=== PATIENT | male | born 1945 | race African-American/Black ===

== ENCOUNTER 2018-08-29 12:58 | Inpatient (IN) | payer OTHER ==
[~2018-08-29] VITALS: Ht 182.9 cm; Wt 86.2 kg
[~2018-08-29 12:58] MED LIST: AMLO10TA4 PO; CALC-837 MT; DEXA4TAB MT; GABA-529 PO; HYDR-4001 PO; PVCXPC MT
[2018-08-29] MEDS ORDERED: SODIUM CHLORIDE 0.9% 1,000 ML IV ONE (14:06)
[2018-08-29] MEDS ORDERED: INSULIN REGULAR (HUMULIN R) UD 100 UNITS/ML SYR SUBCUT ONE (14:15)
[2018-08-29 14:48] LABS: HEMATOCRIT. 28.5 % (42.0-52.0); HEMOGLOBIN. 9.4 g/dL (14.0-18.0); MEAN CORPUSCULAR HEMOGLOBIN 31.6 pg (28.0-32.0); MEAN CORPUSCULAR VOLUME 95.9 fL (80.0-94.0); PLATELET 65 x1000/uL (130-400); RED BLOOD CELL COUNT 2.98 mill/uL (4.7-6.1); RED CELL DISTRIBUTION WIDTH 21.9 % (11.6-14.6)
[2018-08-29 14:59] LABS: BG CARBOXYHEMOGLOBIN 0.6 % (0.5-1.5); BG DEOXYHEMOGLOBIN 3.7 % (0.0-5.0); BG FRACTION INSPIRED OXYGEN 36; BG HCO3 ACT 23.7 mmol/L (22.0-26.0); BG METHEMOGLOBIN 0.3 % (0.0-1.5); BG OXYGEN SATURATION 96.3 % (92.0-98.5); BG OXYHEMOGLOBIN 95.4 % (94.0-97.0); BG PCO2 34.7 mmHg (35.0-45.0); BG PH 7.452 (7.350-7.450); BG PO2 82.4 mmHg (75.0-100.0); BG SAMPLE SITE LEFT BRACHIAL; BG TOTAL HEMOGLOBIN 9.9 g/dL (12.0-18.0); BG VENT MODE NASAL CANNULA
[2018-08-29 15:06] LABS: CHLORIDE 105 mEq/L (98-107)
[2018-08-29 15:10] LABS: D-DIMER 4.82 mg/L FEU (<0.50); INR 1.3; PARTIAL THROMBOPLASTIN TIME 30.5 sec (23.4-31.0)
[2018-08-29 15:24] LABS: BETA HYDROXYBUTYRATE < 0.1 mMol/L (0.0-0.3)
[2018-08-29 15:24] LABS: CLARITY URINE CLEAR (CLEAR); COLOR URINE YELLOW (YELLOW); KETONES URINE NEGATIVE (NEGATIVE); LEUKOCYTE ESTERASE URINE NEGATIVE (NEGATIVE); NITRITE URINE NEGATIVE (NEGATIVE); OCCULT BLOOD URINE TRACE (NEGATIVE); PH URINE 5.5 (4.5-8.0); PROTEIN URINE 1+ (NEGATIVE); SPECIFIC GRAVITY URINE 1.018 (1.005-1.030); UROBILINOGEN URINE 0.2 E.U./dL (0.2-1.0)
[2018-08-29 16:27] LABS: PLATELET ESTIMATE DECREASED
[2018-08-29] MEDS ORDERED: LEVOFLOXACIN 750MG PREMIX 150 ML IV ONE (17:30)
[2018-08-29] MEDS ORDERED: DIPHENHYDRAMINE 50MG/ML VIAL IV PRN (19:15)
[2018-08-29] MEDS ORDERED: MORPHINE SULFATE 4 MG/ML CPJ (NOT FOR IM USE) IV PRN (19:15)
[2018-08-29] MEDS ORDERED: CLONIDINE 0.1MG TABLET PO PRN (19:15)
[2018-08-29] MEDS ORDERED: NA PHOS,M-B/NA PHOS,DI-BA ENEMA 118ML PR PRN (19:15)
[2018-08-29] MEDS ORDERED: GUAIFENESIN 200MG/10ML SUGAR FREE UDC PO PRN (19:15)
[2018-08-29] MEDS ORDERED: ZOLPIDEM TARTRATE 5MG TABLET PO PRN (19:15)
[2018-08-29] MEDS ORDERED: NITROGLYCERIN 0.4MG TABLET SL SL PRN (19:15)
[2018-08-29] MEDS ORDERED: ACETAMINOPHEN 325MG TABLET PO PRN (19:15)
[2018-08-29] MEDS ORDERED: IPRATROPIUM/ALBUTEROL 0.5-3(2.5)MG/3ML NEB INH PRN (19:15)
[2018-08-29] MEDS ORDERED: ONDANSETRON HCL 4MG/2ML INJ IV PRN (19:15)
[2018-08-29] MEDS ORDERED: LORAZEPAM 0.5MG TABLET PO PRN (19:15)
[2018-08-29] MEDS ORDERED: TRAMADOL 50MG TABLET PO PRN (19:15)
[2018-08-29] MEDS ORDERED: DOCUSATE SODIUM 100MG CAPSULE PO PRN (19:15)
[2018-08-29] MEDS ORDERED: MAGNESIUM/ALUMINUM HYDROXIDE/SIMETHICONE 30ML UDC PO PRN (19:15)
[2018-08-29] MEDS: FAMOTIDINE 20MG TABLET PO SCH (21:00)
[2018-08-29] MEDS: ASCORBIC ACID 500 MG TABLET PO SCH (21:00)
[2018-08-29 22:35] VITALS: BP 90/58
[2018-08-29] MEDS ORDERED: FILGRASTIM-TBO 300 MCG/0.5 ML SYRINGE SQ SCH (23:30)
[2018-08-30] VITALS: BP 97/65
[2018-08-30] MEDS: SODIUM CHLORIDE 0.9% 1,000 ML IV SCH ×3 (00:35→14:08)
[2018-08-30 04:00] VITALS: BP 97/67
[2018-08-30 08:00] VITALS: BP 94/63
[2018-08-30] MEDS: FAMOTIDINE 20MG TABLET PO SCH (08:09)
[2018-08-30] MEDS: ASCORBIC ACID 500 MG TABLET PO SCH (08:19)
[2018-08-30 08:22] LABS: CREATINE KINASE 13 IU/L (39-308); CREATINE KINASE MB FRACTION < 1.0 ng/mL (0.5-3.6)
[2018-08-30] MEDS ORDERED: ZINC SULFATE 220 MG ( 50 ) CAPSULE PO SCH (09:00)
[2018-08-30] MEDS ORDERED: LEVOFLOXACIN 500MG PREMIX 100 ML IV SCH (09:00)
[2018-08-30] MEDS ORDERED: CEFTRIAXONE 1 G PREMIX 50 ML IV SCH (10:00)
[2018-08-30] MEDS ORDERED: MEROPENEM 1,000 MG in SODIUM CHLORIDE 0.9% 100 ML IV SCH (11:30)
[2018-08-30 12:00] VITALS: BP 104/66
[2018-08-30 12:19] LABS: HEMATOCRIT. 26.4 % (42.0-52.0); MEAN CORPUSCULAR HEMOGLOBIN 32.1 pg (28.0-32.0); PLATELET 56 x1000/uL (130-400); RED BLOOD CELL COUNT 2.81 mill/uL (4.7-6.1); RED CELL DISTRIBUTION WIDTH 21.4 % (11.6-14.6)
[2018-08-30 12:37] LABS: CHLORIDE 106 mEq/L (98-107)
[2018-08-30 13:23] LABS: PLATELET ESTIMATE DECREASED
[2018-08-30 14:39] VITALS: BP 104/67
[2018-08-30 14:45] VITALS: BP 101/65
[2018-08-30] MEDS ORDERED: POTASSIUM CHLORIDE 20MEQ/PACKET PO SCH (15:15)
[2018-08-30] MEDS ORDERED: FUROSEMIDE 20MG/2ML VIAL IVP SCH (15:15)
[2018-08-30] MEDS ORDERED: SPIRONOLACTONE 25MG TABLET PO SCH (18:00)
[2018-08-30] MEDS ORDERED: FILGRASTIM-TBO 300 MCG/0.5 ML SYRINGE SQ SCH (21:00)
[2018-08-30] MEDS ORDERED: ALBUMIN HUMAN 25GM/100ML (25%) IV SCH (22:00)
== END 2018-08-30 16:13 | disposition short-term general hospital (02) | DRG 871 ==
LOC: ER 12:58 → EDBEDREQ 18:34 → 8WST 18:57 → EDBEDREQ 19:00 → SUPCPDRO 19:08 → ENRESERV 21:30
PROVIDERS: ADMIT Internal Medicine; ATTEND Internal Medicine
DX: A41.50 Gram-negative sepsis, unspecified (principal); D61.810 Antineoplastic chemotherapy induced pancytopenia; E43 Unspecified severe protein-calorie malnutrition; C90.00 Multiple myeloma not having achieved remission; S31.010A Laceration without foreign body of lower back and pelvis without penetration into retroperitoneum, initial encounter; X58.XXXA Exposure to other specified factors, initial encounter; E87.6 Hypokalemia; I11.9 Hypertensive heart disease without heart failure; T45.1X5A Adverse effect of antineoplastic and immunosuppressive drugs, initial encounter; Y92.89 Other specified places as the place of occurrence of the external cause; Z86.718 Personal history of other venous thrombosis and embolism; Z68.25 Body mass index [BMI] 25.0-25.9, adult; Z79.1 Long term (current) use of non-steroidal anti-inflammatories (NSAID); Z79.899 Other long term (current) drug therapy; Y93.89 Activity, other specified; Y99.8 Other external cause status
CPT/HCPCS: 36415; 36600; 71045; 71275; 74177; 80061; 82010; 82375; 82550; 82553; 82805; 82962; 83036; 83605; 83880; 84134; 84484; 85379; 87077; 87186; 93005; 93970; 96361; 96365; 96366; 99291; J0696; J1442; J1815; J1956; J2185; J7030; J7050; P9047